=== PATIENT | male | born 1950 | race Caucasian/White ===

== ENCOUNTER → 2017-07-06 | Outpatient (CLI) | payer MEDICARE, OTHER ==
[~2017-07-06] MED LIST: ALTA10CA; ASPI81TA63; CORE80CA; PLAV75TA2; TOPR200T; ZOCO40TA
[2017-07-08 00:06] LABS: PSA TOTAL 2.9 ng/mL (0.0-4.0)
== END ==
LOC: M LAB 13:54
PROVIDERS: ATTEND Emergency Medicine
DX: N40.1 Benign prostatic hyperplasia with lower urinary tract symptoms (principal)